=== PATIENT | male | born 2000 | race African-American/Black ===

== ENCOUNTER 2022-01-29 12:02 | Emergency (ER) | payer MEDICAID ==
[~2022-01-29] VITALS: Ht 172.7 cm; Wt 73.0 kg
[~2022-01-29 12:02] MED LIST: ALBUTEROL INH; CLONIDINE; FOCALIN; XOPENEX
[2022-01-29 12:12] VITALS: BP 156/96
[2022-01-29] MEDS ORDERED: FLUT9.9S BOTHNSTRLS (15:50)
== END 2022-01-29 16:01 | disposition home or self-care (01) ==
LOC: ER 13:57
DX: H92.02 Otalgia, left ear (principal); H69.82 Other specified disorders of Eustachian tube, left ear; Z88.5 Allergy status to narcotic agent; Z79.899 Other long term (current) drug therapy
CPT/HCPCS: 99283

== ENCOUNTER 2022-10-19 13:27 | Emergency (ER) | payer MEDICAID ==
[~2022-10-19] VITALS: Ht 167.6 cm; Wt 68.0 kg
[~2022-10-19 13:27] MED LIST changes: +FLUT9.9S BOTHNSTRLS
[2022-10-19 13:31] VITALS: BP 124/82
[2022-10-22 04:07] LABS: NEISSERIA GONORRHOEAE NAA Negative (Negative)
== END 2022-10-19 19:08 | disposition home or self-care (01) ==
LOC: ER 13:27
DX: N48.89 Other specified disorders of penis (principal); I10 Essential (primary) hypertension; Z88.5 Allergy status to narcotic agent
CPT/HCPCS: 87491; 87591; 99281